=== PATIENT | male | born 1935 | race Caucasian/White ===

== ENCOUNTER 2016-05-14 14:43 | Inpatient (IN) | payer OTHER ==
[~2016-05-14] VITALS: Ht 176.5 cm; Wt 87.9 kg
[2016-05-14 14:43] VITALS: BP 145/69
[2016-05-14] MEDS ORDERED: SPIRIVA -- 3018 MCG INH (14:47)
[2016-05-14] MEDS ORDERED: PANTOPRAZOLE SO40 MG PO (14:48)
[2016-05-14] MEDS ORDERED: TAMSULOSIN HCL0.4 MG PO (14:48)
[2016-05-14] MEDS ORDERED: PRAVASTATIN SOD40 MG PO (14:48)
[2016-05-14] MEDS ORDERED: PROAIR HFA8.5 GM INH (14:48)
[2016-05-14 15:26] LABS: BASO # 0.1 10*3/uL (0.0-0.1); BASO % 0.5 % (0.0-1.0); EOS # 0.1 10*3/uL (0.0-0.4); EOS % 0.6 % (1.0-4.0); HEMATOCRIT 32.7 % (42.0-52.0); HEMOGLOBIN 9.6 g/dl (14.0-18.0); LYMPH # 0.9 10*3/uL (1.3-4.4); LYMPH % 6.7 % (27.0-41.0); MEAN CELL VOLUME 68.6 fl (80.0-94.0); MEAN CORPUSCULAR HGB 20.1 pg (27.0-31.0); MEAN CORPUSCULAR HGB CONC 29.4 g/dl (33.0-37.0); MEAN PLATELET VOLUME 10.4 fl (9.6-12.3); MONO # 0.8 10*3/uL (0.1-1.0); NEUT % 85.9 % (47.0-73.0); PLATELET COUNT AUTOMATED 274 10*3/uL (130-400); RED BLOOD COUNT 4.77 10*6/uL (4.50-5.90); RED CELL DISTRI WIDTH 22.3 % (0-14.5); WHITE BLOOD COUNT 12.8 10*3/uL (4.8-10.8)
[2016-05-14 15:40] LABS: ALBUMIN 3.6 gm/dl (3.1-4.5); ALKALINE PHOSPHATASE 81 U/L (45-117); BILIRUBIN, TOTAL 0.9 mg/dl (0.2-1.0); BUN 16 mg/dl (7-24); CARBON DIOXIDE 25 mmol/L (21-32); CHLORIDE 104 mmol/L (98-107); EST GLOM FILT AFRICAN AMERICAN > 60 ml/min; GLUCOSE 135 mg/dL (65-99); POTASSIUM 3.8 mmol/L (3.5-5.1); SGOT/AST 13 IU/L (3-35); SGPT/ALT 20 U/L (12-78); SODIUM 141 mmol/L (136-145); TOTAL PROTEIN 7.3 gm/dL (6.4-8.2)
[2016-05-14 15:41] LABS: TROPONIN I < 0.015 ng/ml (<0.5)
[2016-05-14 16:50] VITALS: BP 153/87
[2016-05-14 18:10] VITALS: BP 152/79
[2016-05-14 18:13] LABS: BILIRUBIN NEGATIVE (NEGATIVE); BLOOD 1+ (NEGATIVE); CLARITY CLOUDY (CLEAR); COLOR YELLOW (YELLOW); GLUCOSE NEGATIVE (NEGATIVE); KETONE TRACE (NEGATIVE); LEUKO ESTERASE 3+ (NEGATIVE); NITRITE NEGATIVE (NEGATIVE); PROTEIN 1+ (NEGATIVE); UROBILINOGEN 0.2 E.U./dl (0.2-1.0)
[2016-05-14 18:32] LABS: WBC TNTC wbc/hpf (0-5)
[2016-05-14 18:33] LABS: URINE REFLEX COMMENT YES (NO)
[2016-05-14 20:00] VITALS: BP 147/71
[2016-05-14 22:08] LABS: CKMB 0.7 ng/ml (0.5-3.6); CPK 61 U/L (39-308)
[2016-05-14 22:12] LABS: TROPONIN I < 0.015 ng/ml (<0.5)
[2016-05-15] VITALS: BP 139/50
[2016-05-15 04:17] LABS: HEMATOCRIT 31.9 % (42.0-52.0); HEMOGLOBIN 9.6 g/dl (14.0-18.0); MEAN CELL VOLUME 67.6 fl (80.0-94.0); MEAN CORPUSCULAR HGB 20.3 pg (27.0-31.0); MEAN CORPUSCULAR HGB CONC 30.1 g/dl (33.0-37.0); MEAN PLATELET VOLUME 10.5 fl (9.6-12.3); PLATELET COUNT AUTOMATED 285 10*3/uL (130-400); RED BLOOD COUNT 4.72 10*6/uL (4.50-5.90); RED CELL DISTRI WIDTH 21.9 % (0-14.5); WHITE BLOOD COUNT 10.4 10*3/uL (4.8-10.8)
[2016-05-15 04:32] LABS: CKMB 0.9 ng/ml (0.5-3.6); CPK 75 U/L (39-308)
[2016-05-15 04:33] LABS: LYMPHOCYTE # 0.1 10*3/uL (1.3-4.4); NEUTROPHIL # 10.3 10*3/uL (2.3-7.9); NEUTROPHILS 99 % (47-73); TOTAL CELLS COUNTED 100 #CELLS
[2016-05-15 04:34] LABS: HYPOCHROMIA MODERATE; MICROCYTOSIS MODERATE; PLATELET SUFFICIENCY NORMAL (NORMAL); POLYCHROMASIA SLIGHT
[2016-05-15 04:35] LABS: TROPONIN I < 0.015 ng/ml (<0.5)
[2016-05-15 04:37] LABS: BUN 16 mg/dl (7-24); CARBON DIOXIDE 24 mmol/L (21-32); CHLORIDE 107 mmol/L (98-107); EST GLOM FILT AFRICAN AMERICAN > 60 ml/min; FREE T4 1.29 ng/dl (0.76-1.46); GLUCOSE 241 mg/dL (65-99); SODIUM 140 mmol/L (136-145); THYROID STIM HORMONE (HS) 0.328 uIU/ml (0.358-4.75)
[2016-05-15 08:00] VITALS: BP 160/72
[2016-05-15 12:00] VITALS: BP 172/78
[2016-05-15 16:00] VITALS: BP 152/68
[2016-05-15 20:00] VITALS: BP 166/75
[2016-05-16] VITALS: BP 163/60
[2016-05-16 06:19] LABS: HEMATOCRIT 29.5 % (42.0-52.0); HEMOGLOBIN 8.7 g/dl (14.0-18.0); MEAN CORPUSCULAR HGB CONC 29.5 g/dl (33.0-37.0); MEAN PLATELET VOLUME 11.1 fl (9.6-12.3); PLATELET COUNT AUTOMATED 279 10*3/uL (130-400); RED BLOOD COUNT 4.34 10*6/uL (4.50-5.90); RED CELL DISTRI WIDTH 22.5 % (0-14.5); WHITE BLOOD COUNT 19.2 10*3/uL (4.8-10.8)
[2016-05-16 06:49] LABS: BUN 18 mg/dl (7-24); CARBON DIOXIDE 23 mmol/L (21-32); CHLORIDE 106 mmol/L (98-107); EST GLOM FILT AFRICAN AMERICAN > 60 ml/min; GLUCOSE 194 mg/dL (65-99); POTASSIUM 3.9 mmol/L (3.5-5.1); SODIUM 140 mmol/L (136-145)
[2016-05-16 07:21] LABS: LYMPHOCYTE # 0.4 10*3/uL (1.3-4.4); MICROCYTOSIS MODERATE; NEUTROPHIL # 18.8 10*3/uL (2.3-7.9); NEUTROPHILS 98 % (47-73); PLATELET SUFFICIENCY NORMAL (NORMAL); POLYCHROMASIA SLIGHT; TOTAL CELLS COUNTED 100 #CELLS
[2016-05-16 08:00] VITALS: BP 166/72
[2016-05-16 12:00] VITALS: BP 167/89
== END 2016-05-16 13:07 | disposition left against medical advice (07) | DRG 871 ==
LOC: ED 14:43 → 5E 16:49 → EDHOLD 16:49 → 5E 17:30
PROVIDERS: Internal Medicine; Nurse Practitioner Family
DX: A41.9 Sepsis, unspecified organism (principal); J18.9 Pneumonia, unspecified organism; J44.1 Chronic obstructive pulmonary disease with (acute) exacerbation; E11.9 Type 2 diabetes mellitus without complications; I10 Essential (primary) hypertension; D50.9 Iron deficiency anemia, unspecified; E78.5 Hyperlipidemia, unspecified; F17.200 Nicotine dependence, unspecified, uncomplicated; K21.9 Gastro-esophageal reflux disease without esophagitis; W19.XXXA Unspecified fall, initial encounter; E03.9 Hypothyroidism, unspecified; Z90.49 Acquired absence of other specified parts of digestive tract; Z79.899 Other long term (current) drug therapy